=== PATIENT | male | born 1950 | race Caucasian/White ===

== ENCOUNTER 2019-01-11 21:52 | Observation (INO) ==
[2019-01-11] MEDS: NITROGLYCERIN 0.4 MG/TAB BTL SL PRN ×3 (22:07→22:17)
--- NOTE | 2019-01-11 22:14 | ERNOTE ---
Chest Pain/Cardiac HPI Chief Complaint: Chest Pain Time Seen by Provider: 01/11/19 21:57 Immunizations: IMMUNIZATION HX Immunizations Up to Date Yes Allergies/Adverse Reactions: Allergies acetaminophen [From Percocet] Allergy (Verified 01/12/19 01:51) unknown oxycodone HCl [From Percocet] Allergy (Verified 01/12/19 01:51) Penicillins Allergy (Verified 01/12/19 01:51) Sulfa (Sulfonamide Antibiotics) [Sulfa(Sulfonamide Antibiotics)] Allergy (Verified 01/12/19 01:51) atorvastatin Adverse Reaction (Intermediate, Verified 01/12/19 01:51) itching guaifenesin [From Entex LA] Adverse Reaction (Intermediate, Verified 01/12/19 01:51) nausea lisinopril Adverse Reaction (Intermediate, Verified 01/12/19 01:51) Itching losartan Adverse Reaction (Intermediate, Verified 01/12/19 01:51) Diarrhea metformin Adverse Reaction (Intermediate, Verified 01/12/19 01:51) Itching phenylephrine [From Entex LA] Adverse Reaction (Intermediate, Verified 01/12/19 01:51) nausea phenylpropanolamine [From Entex LA] Adverse Reaction (Intermediate, Verified 01/12/19 01:51) nausea simvastatin Adverse Reaction (Intermediate, Verified 01/12/19 01:51) itching Home Medications: HOME MEDICATIONS Aspirin [Aspirin Enteric Coated] 81 mg PO DAILY 10/26/12 [Last Taken Unknown] triamcinolone acetonide 0.1 % topical cream 1 applic TP BID #30 g 01/11/18 [Last Taken Unknown] cholecalciferol (vitamin D3) 50,000 unit capsule 50,000 unit PO QWEEK #4 cap 07/28/18 [Last Taken Unknown] glipizide 5 mg tablet 5 mg PO BID #60 tab 09/29/18 [Last Taken Unknown] meclizine 12.5 mg tablet 12.5 mg PO BID-QID PRN 10/11/18 [Last Taken Unknown] nystatin 100,000 unit/gram topical cream 1 applic TP BID #30 g 11/15/18 [Last Taken Unknown] propranolol ER 160 mg capsule,24 hr,extended release See Rx Instructions PO .COMPLEX #90 cap 01/10/19 [Last Taken Unknown] Acetaminophen [Tylenol Arthritis] 1,300 mg PO TID 01/12/19 [Last Taken Unknown] Narrative: Patient states he went down and back up stairs in his house and had chest pain early this morning that went away with rest. This evening about 1930 he did the same thing and had chest pain this time it did not resolve after rest and he eventually presented to the ED. He rates his pain 5-6 over 10 and sharp, midsternal. Timing: constant Severity/Quality: moderate, sharp Location: central Chest Pain Radiation: no radiation Activities at Onset: activity Modifying Factors - Improves: Present: rest Modifying Factors - Worsens: Present: exercise Nitro Today/Relief: no nitro taken today Aspirin Treatment Today: 81 mg x 1 Associated Symptoms: Present: denies symptoms Prior Chest Pain/Cardiac Workup: Reports: no prior cardiac workup Review of Systems - Review of Systems Constitutional: Absent: recent illness, fever, chills EYE: Absent: vision changes ENT: Absent: nose congestion, nasal drainage Respiratory: Absent: shortness of breath, cough Cardiology: Present: See HPI Gastrointestinal/Abdominal: Present: diarrhea - x 1 a few days ago.. Absent: nausea, vomiting Musculoskeletal: Absent: back pain, muscle pain Neurological: Absent: headache, dizziness/light-headedness Endocrine: Absent: excessive sweating Medical History (Updated 10/11/18 @ 17:00 by Sabas Das DO) Acute serous otitis media of left ear (Acute) Vertigo (Acute) Labyrinthitis (Acute) Hyperlipidemia with target LDL less than 70 (Chronic) Vitamin D deficiency (Chronic) Onset Date: Unknown Obesity (Chronic) Onset Date: Unknown Migraine (Chronic) Onset Date: Unknown Irritable bowel syndrome (Chronic) Onset Date: Unknown Hypertension (Chronic) Onset Date: Unknown Diabetes (Chronic) Onset Date: Unknown Arthritis (Chronic) Onset Date: Unknown Carpal tunnel syndrome Onset Date: Unknown Hiatal hernia Onset Date: Unknown Left knee pain Onset Date: Unknown TIA (transient ischemic attack) Onset Date: Unknown Surgical History: Surgical History (Updated 12/15/17 @ 09:08 by Lisa Hall LPN) H/O arthroscopic knee surgery Onset Date: Unknown left H/O barium enema Onset Date: ~2015 2015- negative- recheck 5 years H/O colonoscopy Onset Date: ~2004 2004- dr jose- normal- recheck 10 years H/O sinus surgery Onset Date: Unknown S/P carpal tunnel release Onset Date: ~2004 bilateral Family History: Family History (Updated 12/15/17 @ 09:10 by Lisa Hall LPN) Mother Cancer liver and colon cancer Emphysema lung CHF (congestive heart failure) Hypertension Father , age 87 CHF (congestive heart failure) Hypertension Social History: (Last Reviewed 01/11/19 @ 22:13 by Solomon Esqueda DO) Social History: senior care: No Marital status: Single household members: none current occupational status: employed current occupation: half-way Highest education level completed: high school graduate Service: No Tobacco: Smoking Status: Former smoker Alcohol: alcohol intake: former Substance Use: substance use type: does not use Dietary Habits: caffeine: Yes Physical Exam - Physical Exam General Appearance: Present: wd/wn, alert, mild distress Head Exam: Present: normal inspection, no evidence of injury Ears, Nose, Throat: Present: normal ENT inspection Neck: Present: normal inspection, nontender Respiratory: Present: no respiratory distress, no accessory muscle use, chest nontender, lungs clear Cardiovascular/Chest: Present: regular rate, rhythm, no murmur Gastrointestinal/Abdominal: Present: normal bowel sounds, nontender, nondistended, soft Back Exam: Present: normal inspection, normal range of motion Extremity Exam: Present: normal inspection, normal range of motion, no edema Neurological Exam: Present: alert, oriented, normal mood/affect, no motor/sensory deficits Skin Exam: Present: normal color, warm/dry Lymphatic Exam: Present: no adenopathy Progress - Results and Orders Patient's Lab Results:: I have reviewed the patient's lab results. Results and Orders: Laboratory Tests 01/11/19 01/11/19 22:10 22:10 WBC 7.0 Hgb 15.0 Hct 42.5 Plt Count 215 Sodium 136 Potassium 4.4 Chloride 100 Carbon Dioxide 25.3 BUN 14 Creatinine 0.97 Random Glucose 242 H Calcium 8.8 Total Bilirubin 0.7 AST 37 ALT 27 Alkaline Phosphatase 41 L Troponin I Less than 0.017 Total Protein 7.3 Albumin 3.8 - Vital Signs Patient's Vital Signs:: I have reviewed the patient's vital signs. Vital Signs: Vital Signs 01/11/19 21:57 Temperature 36.8 C Pulse Rate 75 Respiratory Rate 15 Blood Pressure 189/92 H O2 Sat by Pulse Oximetry 93 - Progress/Reassessment Chief Complaint: Chest Pain Progress Note-Subjective: 10/09/19 00:[address] Osborne and she agrees with obs admit. Departure Clinical Impression: Chest pain Qualifiers: Chest pain type: unspecified Qualified Code(s): R07.9 - Chest pain, unspecified - Departure Disposition: Still a patient Condition: Fair
[2019-01-11 22:15] LABS: Hematocrit 42.5 % (42.0-52.0); Mean Cell Volume 88.2 fl (78-100); Mean Corpuscular Hemoglobin 31.1 pg (27-31); Mean Corpuscular Hgb Conc 35.3 g/dl (32-36); Mean Platelet Volume 9.7 fl (8-11.3); Neutrophil # 3.3 K/mm3 (1.3-6.0); Neutrophil % 47.2 % (42-75.0); Platelet Count 215 K/mm3 (150-450); Red Blood Count 4.82 M/mm3 (4.7-6.0); Red Cell Distribution Width 12.6 % (11.5-14.0)
[2019-01-11] MEDS ORDERED: ASPIRIN 81 MG TAB.CHEW PO ONE (22:15)
[2019-01-11 22:33] LABS: ALT 27 U/L (19-67); AST 37 U/L (0-48); Albumin * 3.8 gm/dl (3.4-5.0); Alkaline Phosphatase * 41 U/L (50-170); Anion Gap 15.1 mmol/L (6.8-13.8); BUN/Creatinine Ratio 14.4 (9.0-21.6); Bilirubin, Total 0.7 mg/dL (0.0-1.1); Ca. Corrected For Albumin 8.6 mg/dL (8.4-10.2); Calcium * 8.8 mg/dL (7.9-10.9); Carbon Dioxide 25.3 mmol/L (24-32.6); Chloride 100 mmol/L (97-106); Glucose * 242 mg/dL (70-110); Potassium 4.4 mmol/L (3.4-4.6); Sodium 136 mmol/L (132-142); Total Protein 7.3 gm/dL (6.2-8.2)
[2019-01-11 22:35] LABS: Troponin I Less than 0.017 ng/mL (0.00-0.10)
[2019-01-11 22:56] LABS: Blood Urea Nitrogen 14 mg/dL (6-23)
--- NOTE | 2019-01-12 13:17 | HPDIS ---
Chief Complaint - Chief Complaint Date of Service: 01/12/19 Time of Service: 12:30 Chief Complaint: Chest pain History of Present Illness: Jose Enrique Salazar is a 68-year-old white male who is an employee of [employer]. He was at home and had been downstairs. When he started back up the stairs he began having some chest pressure and discomfort. He sat down and it partially resolved but did not completely resolved. He elected to come to the hospital to be evaluated. He denies any radiation of the chest discomfort, denies shortness of breath, denies diaphoresis, denies lightheadedness. He does state that he had some nausea. He does have some left shoulder pain but he has had it operated on twice and does not believe is related. He has not had any previous episodes. His cardiovascular risk factors Positive: Family history, hypertension, diabetes Negative: Tobacco use, dyslipidemia The EKG in the ER was normal and his troponin was negative. His chest discomfort that he was still having on arrival to ER was relieved after 3 sublingual nitroglycerin tablets. He received aspirin in the ER. He was admitted for acute coronary syndrome/rule out NC. Medical History (Updated 01/12/19 @ 02:51 by Solomon Esqueda DO) Acute serous otitis media of left ear (Acute) Vertigo (Acute) Labyrinthitis (Acute) Hyperlipidemia with target LDL less than 70 (Chronic) Vitamin D deficiency (Chronic) Onset Date: Unknown Obesity (Chronic) Onset Date: Unknown Migraine (Chronic) Onset Date: Unknown Irritable bowel syndrome (Chronic) Onset Date: Unknown Hypertension (Chronic) Onset Date: Unknown Diabetes (Chronic) Onset Date: Unknown Arthritis (Chronic) Onset Date: Unknown Carpal tunnel syndrome Onset Date: Unknown Hiatal hernia Onset Date: Unknown Left knee pain Onset Date: Unknown TIA (transient ischemic attack) Onset Date: Unknown Surgical History: Surgical History (Updated 12/15/17 @ 09:08 by Lisa Hall LPN) H/O arthroscopic knee surgery Onset Date: Unknown left H/O barium enema Onset Date: ~2015 2015- negative- recheck 5 years H/O colonoscopy Onset Date: ~2004 2004- dr jose- normal- recheck 10 years H/O sinus surgery Onset Date: Unknown S/P carpal tunnel release Onset Date: ~2004 bilateral Family History: Family History (Updated 12/15/17 @ 09:10 by Lisa Hall LPN) Mother Hypertension CHF (congestive heart failure) Emphysema lung Cancer liver and colon cancer Father , age 87 Hypertension CHF (congestive heart failure) Social History: (Last Reviewed 01/12/19 @ 01:50 by Ruperto Fairbanks RN) Social History: half-way: No Marital status: Single household members: none current occupational status: employed current occupation: senior living Highest education level completed: high school graduate Service: No Tobacco: Smoking Status: Former smoker Alcohol: alcohol intake: former Substance Use: substance use type: does not use Dietary Habits: caffeine: Yes Review Of Systems (GEN) - Review of Systems EENTM: Present: No Symptoms Reported Respiratory: Present: No Symptoms Reported Cardiac: Present: No Symptoms Reported Abdominal: Present: No Symptoms Reported Genitourinary: Present: No Symptoms Reported Musculoskeletal: Present: No Symptoms Reported Neurological: Present: No Symptoms Reported Skin: Present: No Symptoms Reported Endocrine: Present: No Symptoms Reported Misc: All systems neg except as marked Immunizations: IMMUNIZATION HX Immunizations Up to Date Yes Allergies/Adverse Reactions: Allergies Allergy/AdvReac Type Severity Reaction Status Date / Time acetaminophen [From Percocet] Allergy unknown Verified 01/12/19 01:51 oxycodone HCl [From Percocet] Allergy Verified 01/12/19 01:51 Penicillins Allergy Verified 01/12/19 01:51 Sulfa (Sulfonamide Allergy Verified 01/12/19 01:51 Antibiotics) [Sulfa(Sulfonamide Antibiotics)] atorvastatin AdvReac Intermediate itching Verified 01/12/19 01:51 guaifenesin [From Entex LA] AdvReac Intermediate nausea Verified 01/12/19 01:51 lisinopril AdvReac Intermediate Itching Verified 01/12/19 01:51 losartan AdvReac Intermediate Diarrhea Verified 01/12/19 01:51 metformin AdvReac Intermediate Itching Verified 01/12/19 01:51 phenylephrine [From Entex LA] AdvReac Intermediate nausea Verified 01/12/19 01:51 phenylpropanolamine AdvReac Intermediate nausea Verified 01/12/19 01:51 [From Entex LA] simvastatin AdvReac Intermediate itching Verified 01/12/19 01:51 Home Medications: HOME MEDICATIONS Aspirin [Aspirin Enteric Coated] 81 mg PO DAILY 10/26/12 [Last Taken Unknown] triamcinolone acetonide 0.1 % topical cream 1 applic TP BID #30 g 01/11/18 [Last Taken Unknown] cholecalciferol (vitamin D3) 50,000 unit capsule 50,000 unit PO QWEEK #4 cap 07/28/18 [Last Taken Unknown] glipizide 5 mg tablet 5 mg PO BID #60 tab 09/29/18 [Last Taken Unknown] meclizine 12.5 mg tablet 12.5 mg PO BID-QID PRN 10/11/18 [Last Taken Unknown] nystatin 100,000 unit/gram topical cream 1 applic TP BID #30 g 11/15/18 [Last Taken Unknown] propranolol ER 160 mg capsule,24 hr,extended release See Rx Instructions PO .COMPLEX #90 cap 01/10/19 [Last Taken Unknown] Acetaminophen [Tylenol Arthritis] 1,300 mg PO TID 01/12/19 [Last Taken Unknown] Nitroglycerin 0.4 mg SL PRN PRN #25 tab.subl 01/12/19 [Last Taken Unknown] Exam - Exam Vital Signs: Vital Signs - Last Taken Temp 36.5 C 01/12/19 10:18 Pulse 69 01/12/19 10:18 Resp 20 01/12/19 10:18 BP 148/64 01/12/19 10:18 Pulse Ox 93 01/12/19 10:18 Constitutional: Present: Alert, Oriented x3, Cooperative, Well developed, Well nourished, No distress ENT Exam: Present: normal ENT inspection Eye Exam: bilateral eye: normal inspection, PERRL, EOMI Neck: Present: non-tender, full range of motion Back Exam: Present: normal inspection, no vertebral tenderness Breasts: Present: Exam deferred Respiratory: Present: chest non-tender, lungs clear, normal breath sounds, no respiratory distress, no accessory muscle use Cardiovascular/Chest: Present: normal peripheral pulses, regular rate, rhythm, no chest tenderness, no edema, no gallop, no JVD, no murmur, no rub Peripheral Pulses: carotid (R): 2+, carotid (L): 2+, radial (R): 2+, radial (L): 2+ Abdomen: Present: Normal bowel sounds, soft, nontender, nondistended, no rebound tenderness, no hepatospenomegaly, no masses, obese /Rectal: Present: Exam deferred Extremity: Present: normal range of motion, non-tender, normal inspection, no pedal edema, no calf tenderness, normal capillary refill Skin Exam: Present: normal color, warm/dry, no cyanosis Lymphatic: Present: no adenopathy Neurologic: Present: 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, no motor/sensory deficits, alert, normal mood/affect, oriented x 3 Appearance: Present: appropriate appearance, appropriate insight, neat, no memory impairment Eye contact: Present: cooperative, good eye contact, normal speech Thoughts: Present: normal thought pattern, no apparent hallucination Diagnostic Studies: Abnormal Lab Results 01/11/19 01/11/19 Range/Units 22:10 22:10 MCH 31.1 H (27-31) pg Immature Gran % (Auto) 0.60 H (0.001-0.429) % Immature Gran # (Auto) 0.04 H (0.000-0.0310) K/mm3 Anion Gap 15.1 H (6.8-13.8) mmol/L Random Glucose 242 H (70-110) mg/dL Alkaline Phosphatase 41 L (50-170) U/L Laboratory Results WBC 7.0 K/mm3 (4.0-10.5) 01/11/19 22:10 RBC 4.82 M/mm3 (4.7-6.0) 01/11/19 22:10 Hgb 15.0 gm/dL (13.5-18.0) 01/11/19 22:10 Hct 42.5 % (42.0-52.0) 01/11/19 22:10 MCV 88.2 fl (78-100) 01/11/19 22:10 MCH 31.1 pg (27-31) H 01/11/19 22:10 MCHC 35.3 g/dl (32-36) 01/11/19 22:10 RDW 12.6 % (11.5-14.0) 01/11/19 22:10 Plt Count 215 K/mm3 (150-450) 01/11/19 22:10 MPV 9.7 fl (8-11.3) 01/11/19 22:10 Immature Gran % (Auto) 0.60 % (0.001-0.429) H 01/11/19 22:10 Immature Gran # (Auto) 0.04 K/mm3 (0.000-0.0310) H 01/11/19 22:10 47.2 % (42-75.0) 01/11/19 22:10 40.3 % (20-51) 01/11/19 22:10 8.0 % (0.0-9) 01/11/19 22:10 2.9 % (0.0-3.0) 01/11/19 22:10 1.0 % (0.0-1.0) 01/11/19 22:10 Nucleated RBC % 0.0 k/mm3 (0-1) 01/11/19 22:10 3.3 K/mm3 (1.3-6.0) 01/11/19 22:10 2.82 k/mm3 (1.5-3.5) 01/11/19 22:10 0.6 k/mm3 (0.0-1.0) 01/11/19 22:10 0.2 k/mm3 (0.0-0.7) 01/11/19 22:10 Absolute Basophils 0.1 k/mm3 (0.0-0.1) 01/11/19 22:10 Sodium 136 mmol/L (132-142) 01/11/19 22:10 138 mmol/L (130-142) 01/11/19 22:10 Potassium 4.4 mmol/L (3.4-4.6) 01/11/19 22:10 Chloride 100 mmol/L (97-106) 01/11/19 22:10 Carbon Dioxide 25.3 mmol/L (24-32.6) 01/11/19 22:10 15.1 mmol/L (6.8-13.8) H 01/11/19 22:10 BUN 14 mg/dL (6-23) 01/11/19 22:10 0.97 mg/dL (0.4-1.4) 01/11/19 22:10 Est GFR (Non-Af Amer) 82 mL/min (60-130) 01/11/19 22:10 14.4 (9.0-21.6) 01/11/19 22:10 242 mg/dL (70-110) H 01/11/19 22:10 Calcium 8.8 mg/dL (7.9-10.9) 01/11/19 22:10 Calcium Adj for Albumin 8.6 mg/dL (8.4-10.2) 01/11/19 22:10 0.7 mg/dL (0.0-1.1) 01/11/19 22:10 AST 37 U/L (0-48) 01/11/19 22:10 ALT 27 U/L (19-67) 01/11/19 22:10 41 U/L (50-170) L 01/11/19 22:10 Less than 0.017 ng/mL (0.00-0.10) 01/12/19 10:05 7.3 gm/dL (6.2-8.2) 01/11/19 22:10 3.8 gm/dl (3.4-5.0) 01/11/19 22:10 Assessment/Plan - Narrative Narrative: Jose Enrique has been monitored through the night and there have been no dysrhythmias. I have compared to EKG on admission and the one done this morning and they are unchanged essentially. I do not see any evidence of ischemia or previous injury pattern. There are no dysrhythmias. I reviewed his laboratory work this morning which is essentially normal and the troponin is less than 0.017 both times. He is symptom-free and has been since admission. He will be discharged to home. He is to be given a note to be off work for tonight. I will schedule him for an outpatient exercise nuclear stress test. He will have nitroglycerin and wished to go home and also is to start taking a baby aspirin each day. - Assessment/Plan (1) Chest pain Problem: Acute Qualifiers: Chest pain type: precordial pain Qualified Code(s): R07.2 - Precordial pain (2) Family history of coronary artery disease in grandfather Problem: Acute (3) Morbid obesity with BMI of 40.0-44.9, adult Problem: Acute (4) Hypertension Problem: Chronic Qualifiers: Hypertension type: essential hypertension Qualified Code(s): I10 - Essential (primary) hypertension (5) Diabetes Problem: Chronic Qualifiers: Diabetes mellitus type: type 2 Diabetes mellitus superintendent terminal insulin use: without superintendent terminal use Diabetes mellitus complication status: without complication Qualified Code(s): E11.9 - Type 2 diabetes mellitus without complications (1) Chest pain Problem: Acute Qualifiers: Chest pain type: unspecified Qualified Code(s): R07.9 - Chest pain, unspecified (2) Family history of coronary artery disease in grandfather Problem: Chronic (3) Morbid obesity with BMI of 40.0-44.9, adult Problem: Chronic (4) Hypertension Problem: Chronic Qualifiers: Hypertension type: essential hypertension Qualified Code(s): I10 - Essential (primary) hypertension (5) Diabetes Problem: Chronic Qualifiers: Diabetes mellitus type: type 2 Diabetes mellitus care home insulin use: without care home use Diabetes mellitus complication status: without complication Qualified Code(s): E11.9 - Type 2 diabetes mellitus without complications Date of Discharge:: 01/12/19 Description of Stay: Jose Enrique Salazar is a 68-year-old male admitted for acute coronary syndrome to rule out NC. He has been symptom-free since the emergency room. His chest discomfort was relieved with nitroglycerin on the third dose and he has not had any chest discomfort since. The chest pain is not a radiating chest discomfort and is not associated with diaphoresis, lightheadedness, or dyspnea. He did have some nausea with this. I reevaluated his risk factors and reviewed them with him. He understands that it is important to manage the risk factors that we can very well. Serial EKGs (2) and serial troponins (2) are normal. His disposition is improved and his prognosis is good. Procedures Performed: none Results and Findings: Lab Pending Results 01/11/19 22:10: WBC 7.0, RBC 4.82, Hgb 15.0, Hct 42.5, MCV 88.2, MCH 31.1 H, MCHC 35.3, RDW 12.6, Plt Count 215, MPV 9.7, Immature Gran % (Auto) 0.60 H, Immature Gran # (Auto) 0.04 H, Neutrophils % 47.2, Lymphocytes % 40.3, Monocytes % 8.0, Eosinophils % 2.9, Basophils % 1.0, Nucleated RBC % 0.0, Neutrophils # 3.3, Lymphocytes # 2.82, Monocytes # 0.6, Eosinophils # 0.2, Absolute Basophils 0.1 01/11/19 22:10: Sodium 136, Plasma Sodium 138, Potassium 4.4, Chloride 100, Carbon Dioxide 25.3, Anion Gap 15.1 H, BUN 14, Creatinine 0.97, Est GFR (Non-Af Amer) 82, BUN/Creatinine Ratio 14.4, Random Glucose 242 H, Calcium 8.8, Calcium Adj for Albumin 8.6, Total Bilirubin 0.7, AST 37, ALT 27, Alkaline Phosphatase 41 L, Troponin I Less than 0.017, Total Protein 7.3, Albumin 3.8 01/12/19 04:10: Troponin I Less than 0.017 01/12/19 10:05: Troponin I Less than 0.017 Discharge Location: Home Disposition: Home self-care Condition: Good Face to Face Encounter completed per [facility] Guidelines: No Discharge Activity: Activity as tolerated Discharge Diet: Consistent carbs Referrals: Sabas Das DO [Primary Care Provider] - Additional Patient Instructions (free text): 1 off work tonight 2 carry nitroglycerin at all times and use as directed 3 schedule for outpatient exercise nuclear stress test [address] Das in the office in 2 weeks Prescriptions (Any new or edited meds): Nitroglycerin 0.4 mg SL PRN PRN #25 tab.subl PRN Reason: Chest Pain Complete Home Medications List: Complete Home Medication List: Aspirin [Aspirin Enteric Coated] 81 mg PO DAILY 10/26/12 triamcinolone acetonide 0.1 % topical cream 1 applic TP BID #30 g 01/11/18 cholecalciferol (vitamin D3) 50,000 unit capsule 50,000 unit PO QWEEK #4 cap 07/28/18 glipizide 5 mg tablet 5 mg PO BID #60 tab 09/29/18 meclizine 12.5 mg tablet 12.5 mg PO BID-QID PRN 10/11/18 nystatin 100,000 unit/gram topical cream 1 applic TP BID #30 g 11/15/18 propranolol ER 160 mg capsule,24 hr,extended release See Rx Instructions PO .COMPLEX #90 cap 01/10/19 Acetaminophen [Tylenol Arthritis] 1,300 mg PO TID 01/12/19 Nitroglycerin 0.4 mg SL PRN PRN #25 tab.subl 01/12/19
[2019-01-12 13:59] VITALS: BP 168/61
== END 2019-01-12 13:45 | disposition home or self-care (01) ==
LOC: MS 21:52 → ER 21:52 → MS 01-12 01:40
PROVIDERS: ADMIT Internal Medicine; ATTEND Family Medicine
CPT/HCPCS: 36415; 71020; 71046; 80053; 84484; 85025; 93005; 99285; G0378